=== PATIENT | male | born 1965 | race Caucasian/White ===

== ENCOUNTER 2024-01-01 10:33 | Inpatient (IN) ==
--- NOTE | 2023-12-29 11:16 | Anesthesiology Consultation ---
Date of Service December 29, 2023 Assessment & Plan Chart Review Chart Review: Acceptable Risk for Surgery and Patient NOT seen in Pre Admission Testing Consults Requested none ASA ASA4 Proposed Anesthesia Anesthesia Type: General Anesthesia Line Insertion: Arterial line History Surgery Operation Date: 01/01/24 13:00 Proposed Procedures p Right Transcarotid Artery Revascularization - Colin Edwards MD Height/Weight Height: 5 ft 7 in Weight: 78.471 kg Allergies Allergy/AdvReac Type Severity Reaction Status Date / Time No Known Allergies Allergy Verified 12/22/23 09:56 Medications Home Medications Medication Instructions Recorded Confirmed Last Taken atorvastatin 40 mg tablet 40 mg PO HS 11/30/23 12/22/23 12/09/23 cyclobenzaprine 5 mg tablet 5 mg PO QID MUSCLE SPASMS 11/30/23 12/22/23 12/09/23 08:00 fluticasone propionate 50 1 spray intranasal DAILY 11/30/23 12/22/23 12/09/23 mcg/actuation nasal spray,suspension hydroxyzine HCl 50 mg tablet 50 - 100 mg PO HS PRN Sleep 11/30/23 12/22/23 Unknown meloxicam 15 mg tablet 15 mg PO QAM 11/30/23 12/22/23 12/09/23 metoprolol succinate 50 mg 50 mg PO BID 11/30/23 12/22/23 12/09/23 08:00 tablet,extended release 24 hr olmesartan 40 1 tab PO QAM 11/30/23 12/22/23 12/09/23 mg-hydrochlorothiazide 25 mg tablet spironolactone 50 mg tablet 50 mg PO QAM 11/30/23 12/22/23 12/09/23 (Aldactone) ticagrelor 90 mg tablet (Brilinta) 90 mg PO BID 11/30/23 12/22/23 12/09/23 08:00 tizanidine 4 mg tablet 4 - 8 mg PO HS PRN Muscle Spasm 11/30/23 12/22/23 Unknown trazodone 100 mg tablet 100 mg PO HS 11/30/23 12/22/23 12/08/23 ondansetron HCl 4 mg tablet 4 mg PO Q6H PRN nausea and 12/11/23 12/22/23 Unknown vomiting #10 tabs escitalopram oxalate 20 mg tablet 20 mg PO QAM 12/22/23 12/22/23 Unknown Past Medical History Medical History correction (current) use of antithrombotics/antiplatelets 2 cardiac stents 06/2023 Hx of insomnia Carotid artery stenosis Hx of sinusitis gets 2-3 times per year Hyperlipidemia History of COVID-19 (12/09/23) had diarrhea, went to ER at [facility], resolved Hx of coronary artery disease (06/2023) [place], 2 stents, Prox R LAD (Xience Skypoint), Follows Dr. Melissa Tran at [facility] (last seen 3-4 weeks ago) Hypertension Hx of myocardial infarction (06/2023) [place], 2 stents, Prox R LAD (Xience Skypoint), Follows Dr. Melissa Tran at [facility] (last seen 3-4 weeks ago) Exercise / Class Metabolic Activity III < 4 Walking/Shop/Light housework Past Surgical History Surgical History Hx of cardiac catheterization (06/2023) [place], 2 stents, Prox R LAD (Xience Skypoint), Follows Dr. Melissa Tran at [facility] (last seen 3-4 weeks ago) History of back surgery (2016) L4- L5 fusion Hx of shoulder surgery (2019) right, bone spurs Past Anesthesia History No Hx of Anesthesia Complications and No Family Hx of Anesthesia Complications History of PONV No Hx of PONV and No Hx of Motion Sickness Social History Smoking Status: Current every day smoker Smoking cigarettes per day: smokes 4-6 cigs per day (Advised) Do You Dip or Chew Tobacco: No Hx Alcohol Use: No Hx Substance Use: No substance use type: does not use Testing Electrocardiogram Date: 12/11/23 Findings: + SB @ (@ 57) Chest X-Ray Date: 12/11/23 Findings: + NAD Cardiac Catheterization Date: 06/30/23 Findings: + RCA (prox. long 80%), + LMA (LI's in Left Main Trunk; LAD - mid 70%) and + LCX (prox. 30-40%) Intervention: + MAYRA placed (MAYRA to prox. RCA;MAYRA to mid LAD)
--- NOTE | 2024-01-01 10:15 | History & Physical Report ---
"Date of Service January 01, 2024 History of Present Illness Primary Care Provider: Kaley Jordan DO Chief Complaint rm#2 here for right ARIELLE, Jun 2023 had SOB and heaviness of chest, Heart cath 2 stents, LAD and Prox RCA. Continues to smoke but has reduced to 4 cig a day. On plavix, aspirin, and Brilinta. Reason for Consultation Right carotid stenosis History of Present Illness I had the pleasure of seeing [place] today for evaluation of his carotid arteries. There is no he is a 58-year-old male who was seen in the emergency room for facial swelling and tenderness. He had a CAT scan done at that time which showed a severe stenosis of his right internal carotid artery. He does have a significant heart history with having 2 cardiac stents placed in May of last year. Denies any cerebrovascular symptoms such as strokes TIAs or amau rosis fugax. He does not complain of any claudication symptoms. Review of Systems Review of systems a 10 systems was negative except for the history of present illness as well as back pain. Physical Exam Vitals & Measurements HR: 107 (Monitored) BP: 144/82 SpO2: 97% Input and Output - Last 24 hours (Last 8 hours) No I/O Data Found: Ability physical exam he is awake alert and oriented x 3. He is in no apparent distress. His blood pressure is 140/84 on the left and 144/82 on the right. His radials and carotids are +2 bilaterally. There is a right carotid bruit. Lungs are clear heart is regular rhythm abdomen is benign I cannot appreciate a pulsatile mass. Femorals and pedal's are +2 bilaterally. Neurologic exam is intact motor and sensory function. Diagnostic Results CT of the neck with IV contrast suggested a severe stenosis of his right internal carotid artery. Assessment/Plan 1. Carotid stenosis, bilateral At this point we recommend a CT angiogram of his carotid arteries to better define the lesion and planning for TCAR versus endarterectomy. I believe he will be a TCAR candidate. We discussed the risks and benefits of a TCAR versus endarterectomy. He would like to have a TCAR done if possible. He understood the risks options and benefits of this procedure as it is documented in the consent form. We will order a CT angio at this time and preoperative clearance with his lens maker. He is a candidate for CT angiogram we will go ahead with a TCAR. He is not a candidate then endarterectomy will be performed. Thank you very much for letting us participate in the care of this patient. Sincerely, Ophleia Edwards MD Attestation I have personally spent __35___ minutes performing [id number] and [id number] activities on this date of service. Activities Include: __x review of the medical record _x_ obtaining a history _x_ physical exam/evaluation __ review labs _x_ review radiology reports _x_ counseling/educating patient/family/caregiver __ discussion/referral to other healthcare professional _x_ documenting care in the medical record __ independent interpretation of results ____ __ communication of results to patient/family/caregiver __ coordination of care Problem List/Past Medical History Ongoing Anxiety Carotid stenosis, bilateral Chronic back pain Headache History of ST elevation myocardial infarction (STEMI) Hypertension Tobacco user Procedure/Surgical History Cardiac catheterization| Service Date: 2021 Fusion of lumbar spine| Service Date: 01/08/2016 Right shoulder| Service Date: 1994 Medications Home amoxicillin-clavulanate(amoxicillin-clavulanate 875 mg-125 mg oral tablet) aspirin(aspirin 81 mg oral delayed release tablet), 81 mg= 1 tab, PO, Daily atorvastatin(atorvastatin 40 mg oral tablet), 40 mg= 1 tab, PO, Daily, 4 refills cyclobenzaprine(Flexeril 5 mg oral tablet), 10 mg= 2 tab, PO, bid, PRN, 1 refills escitalopram(escitalopram 20 mg oral tablet), 20 mg= 1 tab, PO, Daily fluticasone nasal(Flonase 50 mcg/inh nasal spray), 1 spray, each nostril, Daily hydrochlorothiazide-olmesartan(hydrochlorothiazide-olmesartan 25 mg-40 mg oral tablet), 1 tab, PO, Daily hydrOXYzine(hydrOXYzine hydrochloride 50 mg oral tablet), See Instructions, 2 refills meloxicam(meloxicam 15 mg oral tablet), 15 mg= 1 tab, PO, Daily metoprolol(Metoprolol Succinate ER 50 mg oral tablet, extended release) spironolactone(spironolactone 50 mg oral tablet), 50 mg= 1 tab, PO, Daily ticagrelor(Brilinta (ticagrelor) 90 mg oral tablet), 90 mg= 1 tab, PO, bid traZODone(traZODone 100 mg oral tablet), 100 mg= 1 tab, PO, qhs, 2 refills Allergies No Known Medication Allergies Social History Smoking Status Current every day light smoker Alcohol Use:Current Frequency:1-2 times per month Employment/School Status:Disability Exercise Exercise type:Walking Home/Environment Lives with:Alone Feels unsafe at home:No Substance Abuse - Denies Substance Abuse Tobacco Use:Current every day smoker Tobacco use per day:5 Family History Cancer: Father. Crohn's disease: Sister and Brother. Health Status Family Member(s) Family Member(s) Relationship: Father, Age: 54 Years, Cause: stomach cancer Relationship: Mother, Age: 74 Years, Cause: ileus Relationship: Sister, Age: 57 Years, Cause: sepsis, post-op complication Immunizations Vaccine Date Status pneumococcal 23-valent vaccine 01/10/2021 Recorded SARS-CoV-2 (COVID-19) mRNA-1273 vaccine 10/20/2020 Recorded SARS-CoV-2 (COVID-19) mRNA-1273 vaccine 10/06/2020 Recorded Signature Line Electronic Signature on File Colin Edwards MD Author Signature Dt/Tm: 12/03/2023 10:31 AM Section [employer]s Activities Clerk [place] [facility] [place], [address] Result Type: .Outpt Ltr Date of Service: December 03, 2023 10:26 EDT Authorization Status: Final Subject: Consult Note Author or Import Date: MD Edwards Eugene J on December 03, 2023 10:31 EDT Verified By: MD Edwards Eugene J on December 03, 2023 10:31 EDT Encounter info: [id number], [place] [id number], [facility], 12/03/2023 - 12/03/2023 Allergies Allergy/AdvReac Type Severity Reaction Status Date / Time No Known Allergies Allergy Verified 12/22/23 09:56 Home Medications Medication Instructions Recorded Confirmed Type atorvastatin 40 mg tablet 40 mg PO HS 11/30/23 12/22/23 History cyclobenzaprine 5 mg tablet 5 mg PO QID MUSCLE SPASMS 11/30/23 12/22/23 History fluticasone propionate 50 1 spray intranasal DAILY 11/30/23 12/22/23 History mcg/actuation nasal spray,suspension hydroxyzine HCl 50 mg tablet 50 - 100 mg PO HS PRN Sleep 11/30/23 12/22/23 History meloxicam 15 mg tablet 15 mg PO QAM 11/30/23 12/22/23 History metoprolol succinate 50 mg 50 mg PO BID 11/30/23 12/22/23 History tablet,extended release 24 hr olmesartan 40 1 tab PO QAM 11/30/23 12/22/23 History mg-hydrochlorothiazide 25 mg tablet spironolactone 50 mg tablet 50 mg PO QAM 11/30/23 12/22/23 History (Aldactone) ticagrelor 90 mg tablet (Brilinta) 90 mg PO BID 11/30/23 12/22/23 History tizanidine 4 mg tablet 4 - 8 mg PO HS PRN Muscle Spasm 11/30/23 12/22/23 History trazodone 100 mg tablet 100 mg PO HS 11/30/23 12/22/23 History ondansetron HCl 4 mg tablet 4 mg PO Q6H PRN nausea and 12/11/23 12/22/23 Rx vomiting #10 tabs escitalopram oxalate 20 mg tablet 20 mg PO QAM 12/22/23 12/22/23 History Past Med/Surg History Problem List COVID (Acute) 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 Torres Cardio at [facility] (last seen 3-4 weeks ago) Hypertension Hx of myocardial infarction (06/2023) [place], [place], Prox R LAD (Xience Skypoint), Follows Dr. Torres Cardio at [facility] (last seen 3-4 weeks ago) Surgical History Hx of cardiac catheterization (06/2023) [place], 2 stents, Prox R LAD (Xience Skypoint), Follows Dr. Melissa Tran at [facility] (last seen 3-4 weeks ago) History of back surgery (2016) L4- L5 fusion Hx of shoulder surgery (2019) right, bone spurs Social History Smoking Status: Current every day smoker Tobacco Type: Cigarettes Cigarettes Per Day: smokes 4-6 cigs per day (Advised); Second Hand Exposure: No; Do You Dip or Chew Tobacco: No; Tobacco Cessation Education Requested by Patient: No Hx Alcohol Use: No Hx Substance Use: No Preferred Language: Belarusian Communication Ability: Effective Enrolled Agent Required: No Beliefs That Will Affect Care: None Current Living Situation: Alone Other Information That Helps Us Care for You: No Feels Safe at Home: Yes Safety Concerns: Feels Safe At This Time Assistive Devices: Glasses"
[2024-01-01] MEDS ORDERED: fentaNYL citrate PF 100 MCG/2 ML VIAL ONE ×2 (10:55→14:22)
[2024-01-01] MEDS ORDERED: ONDANSETRON INJ 2 MG/ML 2 ML VIAL ONE (10:55)
[2024-01-01] MEDS ORDERED: MIDAZOLAM HCL 1 MG/ML 2ML VIAL ONE (10:55)
[2024-01-01] MEDS ORDERED: PROPOFOL IV EMULSION 10 MG/ML 20 ML VIAL IV ONE (10:55)
[2024-01-01] MEDS ORDERED: ROCURONIUM BROMIDE 10 MG/ML 5 ML VIAL IV ONE (10:55)
[2024-01-01] MEDS ORDERED: LIDOCAINE 2% 2 ML VIAL/AMP(20MG/ML) INFIL ONE (10:55)
[2024-01-01] MEDS: ASPIRIN 81 MG ECTAB PO ONE ×2 (11:09→11:16)
[2024-01-01] MEDS: LACTATED RINGER'S 1,000 ML BAG IV SCH (11:10)
[2024-01-01] MEDS: LR 15ML/HR IV SCH (11:10)
[2024-01-01] MEDS ORDERED: fentaNYL citrate PF 100 MCG/2 ML VIAL IV PRN (12:14)
[2024-01-01] MEDS ORDERED: ONDANSETRON INJ 2 MG/ML 2 ML VIAL IV PRN (12:14)
[2024-01-01] MEDS ORDERED: ePHEDrine sulfate 50 MG/ML AMP IV PRN (12:14)
[2024-01-01] MEDS ORDERED: ATROPINE SULFATE 0.1 MG/ML 10ML SYR IV PRN (12:14)
--- NOTE | 2024-01-01 12:52 | History & Physical Bridge Note ---
Date of Service January 01, 2024 History & Physical Bridge Note Patient is a TCAR candidate. I have discussed the risks options and benefits of the procedure with the patient. The patient understands the risks options and benefits and agrees to the procedure. I have examined the patient, reviewed the History & Physical and in the interval since the performance of the History & Physical I have noted the following changes of clinical significance: no changes noted
[2024-01-01] MEDS: CEFAZOLIN 2,000 MG/15 ML SYR IV SCH (13:03)
[2024-01-01] MEDS: VISIPAQUE IV ONE (14:00)
[2024-01-01] MEDS ORDERED: SUGAMMADEX SODIUM 200 MG/2 ML VIAL IV ONE ×2 (14:04→14:16)
--- NOTE | 2024-01-01 14:27 | Procedure Note ---
Angiogram Post Procedure Fluoroscopy Time (minutes): 2.3 Radiation (mGy): 25 Contrast: 12 Post Operative Report Pre & Post Diagnosis Operation Date: 01/01/24 13:00 Pre-Op Diagnosis: Right Carotid Artery Stenosis Post-Op Diagnosis: Right Carotid Artery Stenosis I identified the patient and participated in the time-out.: Yes Procedure Operation Date: 01/01/24 13:00 Actual Procedures p Right Transcarotid Artery Revascularization(Right), Ultrasound localization of the left common femoral vein- Colin Edwards MD Surgeon Colin Edwards MD Elevator Attendant none Estimated Blood Loss 10 Findings Consistent with Post-Op Diagnosis Specimens none Anesthesia Type General Complications none Disposition Accompanied Patient To Recovery: No Disposition: Recovery Room Indications This is a 58-year-old gentleman was found to have a severe stenosis of his right internal carotid artery which was asymptomatic. We discussed the risk option benefits of intervening with a TCAR or endarterectomy. He elected to go ahead with a TCAR procedure. I have discussed the risks options and benefits of the procedure with the patien t. The patient understands the risks options and benefits and agrees to the procedure. Description of Procedure The patient was taken to the operating room and placed in supine position. After general anesthesia was accomplished the groins and right side of the neck and chest were prepped and draped in a sterile manner. Timeout was performed and the patient was identified. A transverse incision was made just above the clavicle between the heads of the sternocleidomastoid. This was carried down to where the common carotid artery was identified. It was isolated and slung with an umbilical tape. A 5-0 Prolene U-stitch was used on the common carotid artery and the puncture site. It was given 8000 units of heparin at that time. Ultrasound was then used to localize the left common femoral vein. The vein was patent and compressed easily. Under ultrasound guidance the left common femoral vein was punctured and the venous sheath was inserted. This was aspirated and flushed with heparinized saline. An ACT at that time was 271. Using micropuncture technique the common carotid artery was punctured. The micro sheath was inserted to 3 cm. Injection was then done showing the bifurcation. There was a significant lesion seen just beyond the origin of the internal carotid artery on the right side. We reinserted the micro wire and passed it into the external carotid. We then advanced the dilator and sheath into the external carotid. The dilater and sheath were removed. We then inserted the J- wire into the external carotid artery. The TCAR sheath was inserted. Once it was in place and held against the artery it was sutured to the chest wall and the incision edge. We then flushed the tubing appropriately. The venous return tubing was clamped onto the TCAR sheath. It was flushed through and then attached to the venous inflow sheath in the left groin. The sheath was checked for flow. We then inserted a 5 x 35 balloon backloaded on the wire. The wire was passed through the lesion into the petrous portion of the internal carotid. The 5 balloon was then advanced to the lesion. The lesion was then predilated with the 5 mm balloon. The balloon was removed. We then inserted the 9/7 x 40 stent. This was deployed across the lesion without difficulty. The catheter was removed. The carotid was allowed to go 2 minutes with flow reversal. Completion angiogram was done at that time which showed no residual stenosis.The wire was removed we allowed 2 minutes of flow reversal to occur. A that point the common carotid artery was unclamped. The venous return tubing was clamped and removed from the TCAR sheath. The blood was allowed to flow back into the venous system. Once this was completed the sheath was pulled from the groin and pressure was applied. The TCAR sheath was then removed and the 5- 0 Prolene suture securely tied. Hemostasis was noted of the puncture site. Wound was irrigated with Ancef solution. Adequate hemostasis was obtained of the wound. Once this was noted the wound was closed in usual fashion using a 3- 0 Vicryl suture for the subcutaneous layer and a 4-0 subcuticular Vicryl suture for the skin edges. Dermabond was used for dressing.The patient left the operation room in satisfactory condition and tolerated the procedure well. All needle and sponge counts were correct at the end of the procedure. I attest to the content of the Intraoperative Record and any orders documented therein. Any exceptions are noted below.
[2024-01-01] MEDS: BUPIVACAINE/EPINEPHRINE 0.5% MPF 1:200,000 30 ML VIAL ONE (14:30)
[2024-01-01] MEDS: ceFAZolin 330 MG/ML 1 GM VIAL ONE (14:37)
[2024-01-01] MEDS ORDERED: Nursing to Pharmacy Communication SCH (15:00)
--- NOTE | 2024-01-01 15:27 | Anesthesiology Progress Note ---
Date of Service January 01, 2024 Anesthesia Post Procedure Vital Signs Vital Signs: Temp Pulse Pulse Resp BP BP BP 01/01/24 15:15 76 13 113/60 119/75 01/01/24 15:05 81 18 121/60 129/76 01/01/24 14:55 81 12 98/51 L 114/46 L 01/01/24 14:45 84 15 116/56 L 108/79 01/01/24 14:35 74 13 125/87 127/67 01/01/24 14:29 36.2 C L 79 12 110/72 119/56 L 01/01/24 10:57 36.6 C 66 18 164/98 H 175/103 H Pulse Ox O2 Del Method O2 Flow Rate 01/01/24 15:15 96 Nasal Cannula 2 01/01/24 15:05 99 Nasal Cannula 4 01/01/24 14:55 97 Oxymask 6 01/01/24 14:45 96 Oxymask 10 01/01/24 14:35 99 Oxymask 10 01/01/24 14:29 97 Oxymask 10 01/01/24 10:57 98 Room Air Transfer of Care Handoff Completed per policy Notes Mental Status: alert / awake / arousable Patient Amnestic to Procedure: Yes Nausea / Vomiting: adequately controlled Pain: adequately controlled Airway Patency, RR, SpO2: stable & adequate BP & HR: stable & adequate Hydration State: stable & adequate Anesthetic Complications: no major complications apparent and Pt Satisfied with anesthetic care
[2024-01-01] MEDS ORDERED: STAT IV Infusion **Titration per Protocol STA (15:49)
[2024-01-01] MEDS ORDERED: PHENYLEPHRINE/NSS 25 MG/250 ML BAG IV PRN (15:49)
[2024-01-01] MEDS ORDERED: CYCLOBENZAPRINE HCL 5 MG TAB PO PRN (15:49)
[2024-01-01] MEDS ORDERED: tiZANidine HCL 4 MG TABLET PO PRN (15:49)
[2024-01-01] MEDS ORDERED: ONDANSETRON 4 MG OD TAB PO PRN (15:57)
[2024-01-01] MEDS: HEPARIN SOD (PORCINE) 1000 UNIT/ML IV ONE (16:31)
[2024-01-01] MEDS: LACTATED RINGER'S 1,000 ML IV SCH (16:36)
[2024-01-01] MEDS: ceFAZolin 2000MG 2,000 MG/15 ML SYR IV SCH (16:37)
[2024-01-01] MEDS ORDERED: PNEUMOCOCCAL VACCINE (PCV20) 20-VAL CONJ-DIP CRM/PF 0.5 ML SYR IM ONE (16:55)
[2024-01-01] MEDS: oxyCODONE/ACETAMINOPHEN 5mg/325mg TAB PO PRN (19:38)
--- NOTE | 2024-01-01 20:22 | Critical Care Consultation ---
Date of Consultation January 01, 2024 Assessment & Plan (1) Carotid artery stenosis: S/p right TCAR, POD 1. Admitted to ICU overnight for further monitoring -No issues at this time. Management per vascular surgery - Continue statin, Brilinta (2) Anxiety disorder: Continue Lexapro, trazodone (3) Hypertension: Continue hydrochlorothiazide, Cozaar, MTP, Aldactone (4) Lumbar stenosis: Continue Flexeril as needed, Percocet as needed History of Present Illness Attending Physician: Colin Edwards MD History of Present Illness Patient is a 58-year-old male with past medical history significant for previous DC in June, s/p PCI x 2, HTN, HLD, anxiety, lumbar stenosis, and recent diagnosis of carotid artery disease. Patient presented to the emergency department approximately 3 weeks ago with complaints of facial droop and episodes of dizziness which have proceeded up until 3 days ago. At that time he was found to have severe stenosis of the right internal carotid artery. Today he presents to the ICU post op following a right TCAR. On arrival to the ICU the patient is alert and oriented and hemodynamically stable. He is without acute distress, and only complains of a mild headache for which he recently took Tylenol. Patient reports that last episode of dizziness was about 3 days ago, and since then he is stayed out of the heat. He reports smoking about 4 to 5 cigarettes/day, which is down from a pack and a half a day which she smoked prior to his DC in June. Patient denies syncope, changes in vision, numbness or tingling, weakness, changes in gait. He denies shortness of breath, cough or congestion, fevers, chest pain, abdominal pain, nausea vomiting or diarrhea, swelling in hands or feet, changes in urinary frequency. Patient to remain in ICU overnight for monitoring postprocedure. Allergies Allergy/AdvReac Type Severity Reaction Status Date / Time No Known Allergies Allergy Verified 01/01/24 11:05 Home Medications Medication Instructions Recorded Confirmed Type atorvastatin 40 mg tablet 40 mg PO HS 11/30/23 01/01/24 History cyclobenzaprine 5 mg tablet 5 mg PO QID PRN MUSCLE SPASMS 11/30/23 01/01/24 History fluticasone propionate 50 1 spray intranasal DAILY 11/30/23 01/01/24 History mcg/actuation nasal spray,suspension hydroxyzine HCl 50 mg tablet 50 - 100 mg PO HS PRN Sleep 11/30/23 01/01/24 History meloxicam 15 mg tablet 15 mg PO QAM 11/30/23 01/01/24 History metoprolol succinate 50 mg 50 mg PO BID 11/30/23 01/01/24 History tablet,extended release 24 hr olmesartan 40 1 tab PO QAM 11/30/23 01/01/24 History mg-hydrochlorothiazide 25 mg tablet spironolactone 50 mg tablet 50 mg PO QAM 11/30/23 01/01/24 History (Aldactone) ticagrelor 90 mg tablet (Brilinta) 90 mg PO BID 11/30/23 01/01/24 History tizanidine 4 mg tablet (Zanaflex) 4 - 8 mg PO HS PRN Muscle Spasm 11/30/23 01/01/24 History trazodone 100 mg tablet 100 mg PO HS 11/30/23 01/01/24 History ondansetron HCl 4 mg tablet 4 mg PO Q6H PRN nausea and 12/11/23 01/01/24 Rx vomiting #10 tabs escitalopram oxalate 20 mg tablet 20 mg PO QAM 12/22/23 01/01/24 History (Lexapro) Patient History Medical History care home (current) use of antithrombotics/antiplatelets 2 cardiac stents 06/2023 Hx of insomnia Carotid artery stenosis Hx of sinusitis gets 2-3 times per year Hyperlipidemia History of COVID-19 (12/09/23) had diarrhea, went to ER at [facility], resolved Hx of coronary artery disease (06/2023) [facility], 2 stents, Prox R LAD (Xience [facility]), Follows Dr. Torres Cardio at [facility] (last seen 3-4 weeks ago) Hypertension Hx of myocardial infarction (06/2023) [facility]er, 2 stents, Prox R LAD (Xience [facility]oint), Follows Dr. Torres Cardio at [facility] (last seen 3-4 weeks ago) Surgical History Hx of cardiac catheterization (06/2023) [facility] [place], 2 stents, Prox R LAD (Xience [place]), Follows Dr. Torres Cardio at [facility] (last seen 3-4 weeks ago) History of back surgery (2016) L4- L5 fusion Hx of shoulder surgery (2019) right, bone spurs Social History Smoking Status: Current every day smoker Tobacco Type: Cigarettes Cigarettes Per Day: smokes 4-6 cigs per day (Advised); Second Hand Exposure: No; Do You Dip or Chew Tobacco: No; Tobacco Cessation Education Requested by Patient: No Hx Alcohol Use: No Hx Substance Use: No Preferred Language: Portuguese Communication Ability: Effective Calender Operator Helper Required: No Beliefs That Will Affect Care: None Current Living Situation: Alone Other Information That Helps Us Care for You: No Feels Safe at Home: Yes Safety Concerns: Feels Safe At This Time Assistive Devices: Glasses Review of Systems Review of Systems: All systems reviewed & are unremarkable except as noted in HPI & below Physical Exam Constitutional: cooperative and comfortable Eyes: PERRL, conjunctivae normal, anicteric sclerae ENMT: external ear and nose normal, oropharynx normal Neck: trachea midline, no thyromegaly Respiratory: normal respiratory effort, lungs clear to auscultation Cardiovascular: RRR, no murmur, no edema Heart Sounds: normal S1 and normal S2; no murmur Extremities: no edema Gastrointestinal (Abdomen): normal bowel sounds, soft, nontender, no hepatosplenomegaly Musculoskeletal: no cyanosis or clubbing, extremities motor strength 5/5 Skin: no rashes, warm and dry Neurologic: PERRL, EOMI, accommodation nl, no face palsy, no dysarthria Psychiatric: A+Ox3, euthymic affect Results & Data Results & Data Vital Signs (Past 12 Hours) Vital Signs Temp Pulse Pulse Pulse Resp BP BP 01/01/24 20:00 73 20 139/85 01/01/24 19:16 36.5 C 65 14 01/01/24 18:42 36.5 C 65 18 01/01/24 17:46 36.5 C 63 16 01/01/24 16:45 36.5 C 75 16 01/01/24 16:40 36.5 C 73 16 01/01/24 16:00 73 01/01/24 15:45 36.5 C 73 16 01/01/24 15:25 36.4 C L 73 13 01/01/24 15:15 76 13 01/01/24 15:05 81 18 01/01/24 14:55 81 12 01/01/24 14:45 84 15 01/01/24 14:35 74 13 125/87 01/01/24 14:29 36.2 C L 79 12 110/72 01/01/24 10:57 36.6 C 66 18 164/98 H BP BP Pulse Ox O2 Del Method O2 Flow Rate 01/01/24 20:00 95 Room Air 01/01/24 19:16 117/77 96 Room Air 01/01/24 18:42 118/77 94 Room Air 01/01/24 17:46 123/78 98 Room Air 01/01/24 16:45 103/85 97 Room Air 01/01/24 16:40 105/88 95 Room Air 01/01/24 16:00 01/01/24 15:45 122/90 96 Room Air 01/01/24 15:25 139/70 131/86 99 Nasal Cannula 2 01/01/24 15:15 113/60 119/75 96 Nasal Cannula 2 01/01/24 15:05 121/60 129/76 99 Nasal Cannula 4 01/01/24 14:55 98/51 L 114/46 L 97 Oxymask 6 01/01/24 14:45 116/56 L 108/79 96 Oxymask 10 01/01/24 14:35 127/67 99 Oxymask 10 01/01/24 14:29 119/56 L 97 Oxymask 10 01/01/24 10:57 175/103 H 98 Room Air Coding Level of Care Code 98676 IN/OBS CONSULT LVL 2,35M Diagnoses Carotid artery stenosis I65.29 Anxiety disorder F41.9 Hypertension I10 Lumbar stenosis M48.061 Time Spent (min) 38
[2024-01-01] MEDS: METOPROLOL SUCC 50MG EXT REL TAB PO SCH (20:49)
[2024-01-01] MEDS: TICAGRELOR 90 MG TAB PO SCH (20:50)
[2024-01-01] MEDS: ATORVASTATIN 40 MG TAB PO SCH (20:50)
[2024-01-01] MEDS: traZODone HCL 100 MG TAB PO SCH (21:38)
[2024-01-02] MEDS: ESCITALOPRAM OXALATE 20 MG TAB PO SCH (08:40)
[2024-01-02] MEDS: hydroCHLOROthiazide 25 MG TAB PO SCH (08:41)
[2024-01-02] MEDS: FLUTICASONE PROPIONATE NA SPR 16 GM BTL SCH (08:41)
[2024-01-02] MEDS: LOSARTAN POTASSIUM 50 MG TAB PO SCH (08:41)
[2024-01-02] MEDS: SPIRONOLACTONE 25 MG TAB PO SCH (08:41)
[2024-01-02] MEDS: MELOXICAM 7.5 MG TAB PO SCH (08:41)
--- NOTE | 2024-01-02 08:58 | Surgery Progress Note ---
Date of Service January 02, 2024 Assessment & Plan (1) Internal carotid artery stent present: Plan: Pt now POD #1 after R TCAR, doing well post op. OK for d/c home today. Unfortunately, pt with urinary retention since catheter removal yesterday, now with hernandez to leg bag present. Will start flomax. Pt will follow up with urology as outpt. (2) Carotid artery stenosis: Plan: see above Admission and Anticipated Discharge Date Admission Date: January 01, 2024 Subjective 58 yo m POD #1 after R TCAR, seen in f/u today. Pt states moderate discomfort in neck incision. Unable to void since hernandez removal yesterday. Required straight cath x2. Review of Systems Review of Systems: All systems reviewed & are unremarkable except as noted in HPI & below Physical Exam Constitutional: WD/WN, vitals as above not in distress Respiratory: normal respiratory effort, lungs clear to auscultation Auscultation: + diminished lung sounds Cardiovascular: Rate/Rhythm: regular rate and regular rhythm Vessels: posterior tibial pulses present, dorsalis pedis pulses present and radial pulses present; + abnormal peripheral pulses Extremities: normal capillary refill Gastrointestinal (Abdomen): Inspection/Auscultation: abdomen normal to inspection and normal bowel sounds Percussion/Palpation: abdomen soft; abdomen nontender Musculoskeletal: no cyanosis or clubbing, extremities motor strength 5/5 Skin: no rashes, warm and dry + incision (R supraclavicular incision C/D/I, mild local ecchymosis, tenderness) Neurologic: moves all extremities and awake; no focal motor deficits and not confused Psychiatric: A+Ox3, euthymic affect Results & Data Vital Signs (Past 12 Hours) Vital Signs Temp Pulse Pulse Resp BP BP Pulse Ox 01/02/24 08:48 61 12 118/57 L 118/65 93 01/02/24 07:08 59 L 16 141/74 H 137/72 93 01/02/24 07:02 36.4 C L 55 L 14 115/65 104/70 93 01/02/24 07:00 01/02/24 06:00 36.5 C 55 L 14 125/71 137/80 95 01/02/24 05:00 66 19 92 01/02/24 03:48 36.5 C 60 15 116/70 140/55 L 97 01/02/24 01:03 56 L 15 96 01/02/24 00:34 89 L 01/02/24 00:06 65 17 93 01/02/24 00:00 62 01/02/24 00:00 36.5 C 75 20 140/76 148/60 H 95 01/01/24 22:00 59 L 20 95 O2 Del Method O2 Flow Rate FiO2 01/02/24 08:48 Room Air 01/02/24 07:08 Room Air 01/02/24 07:02 Room Air 01/02/24 07:00 Room Air 01/02/24 06:00 Room Air 01/02/24 05:00 Nasal Cannula 2 01/02/24 03:48 Nasal Cannula 2 01/02/24 01:03 Nasal Cannula 2 01/02/24 00:34 Room Air, Nasal Cannula 21 01/02/24 00:06 01/02/24 00:00 01/02/24 00:00 Room Air 01/01/24 22:00
--- NOTE | 2024-01-02 08:59 | Discharge Summary ---
"Date of Service January 02, 2024 Admission HPI Per Admitting Provider Chief Complaint rm#2 here for right ARIELLE, Jun 2023 had SOB and heaviness of chest, Heart cath 2 stents, LAD and Prox RCA. Continues to smoke but has reduced to 4 cig a day. On plavix, aspirin, and Brilinta. Reason for Consultation Right carotid stenosis History of Present Illness I had the pleasure of seeing Truong today for evaluation of his carotid arteries. There is no he is a 58-year-old male who was seen in the emergency room for facial swelling and tenderness. He had a CAT scan done at that time which showed a severe stenosis of his right internal carotid artery. He does have a significant heart history with having 2 cardiac stents placed in May of last year. Denies any cerebrovascular symptoms such as strokes TIAs or amaurosis fugax. He does not complain of any claudication symptoms. Review of Systems Review of systems a 10 systems was negative except for the history of present illness as well as back pain. Physical Exam Vitals & Measurements HR: 107 (Monitored) BP: 144/82 SpO2: 97% Input and Output - Last 24 hours (Last 8 hours) No I/O Data Found: Ability physical exam he is awake alert and oriented x 3. He is in no apparent distress. His blood pressure is 140/84 on the left and 144/82 on the right. His radials and carotids are +2 bilaterally. There is a right carotid bruit. Lungs are clear heart is regular rhythm abdomen is benign I cannot appreciate a pulsatile mass. Femorals and pedal's are +2 bilaterally. Neurologic exam is intact motor and sensory function. Diagnostic Results CT of the neck with IV contrast suggested a severe stenosis of his right internal carotid artery. Assessment/Plan 1. Carotid stenosis, bilateral At this point we recommend a CT angiogram of his carotid arteries to better define the lesion and planning for TCAR versus endarterectomy. I believe he will be a TCAR candidate. We discussed the risks and benefits of a TCAR versus endarterectomy. He would like to have a TCAR done if possible. He understood the risks options and benefits of this procedure as it is documented in the consent form. 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 He is a candidate for CT angiogram we will go ahead with a TCAR. He is not a candidate then endarterectomy will be performed. Thank you very much for letting us participate in the care of this patient. Sincerely, Ophelia Montana MD Attestation I have personally spent __35___ minutes performing [id number] and [id number] activities on this date of service. Activities Include: __x review of the medical record _x_ obtaining a history _x_ physical exam/evaluation __ review labs _x_ review radiology reports _x_ counseling/educating patient/family/caregiver __ discussion/referral to other healthcare professional _x_ documenting care in the medical record __ independent interpretation of results __ communication of results to patient/family/caregiver __ coordination of care Problem List/Past Medical History Ongoing Anxiety Carotid stenosis, bilateral Chronic back pain Headache History of ST elevation myocardial infarction (STEMI) Hypertension Tobacco user Procedure/Surgical History Cardiac catheterization| Service Date: 2021 Fusion of lumbar spine| Service Date: 01/08/2016 Right shoulder| Service Date: 1994 Medications Home amoxicillin-clavulanate(amoxicillin-clavulanate 875 mg-125 mg oral tablet) aspirin(aspirin 81 mg oral delayed release tablet), 81 mg= 1 tab, PO, Daily atorvastatin(atorvastatin 40 mg oral tablet), 40 mg= 1 tab, PO, Daily, 4 refills cyclobenzaprine(Flexeril 5 mg oral tablet), 10 mg= 2 tab, PO, bid, PRN, 1 refills escitalopram(escitalopram 20 mg oral tablet), 20 mg= 1 tab, PO, Daily fluticasone nasal(Flonase 50 mcg/inh nasal spray), 1 spray, each nostril, Daily hydrochlorothiazide-olmesartan(hydrochlorothiazide-olmesartan 25 mg-40 mg oral tablet), 1 tab, PO, Daily hydrOXYzine(hydrOXYzine hydrochloride 50 mg oral tablet), See Instructions, 2 refills meloxicam(meloxicam 15 mg oral tablet), 15 mg= 1 tab, PO, Daily metoprolol(Metoprolol Succinate ER 50 mg oral tablet, extended release) spironolactone(spironolactone 50 mg oral tablet), 50 mg= 1 tab, PO, Daily ticagrelor(Brilinta (ticagrelor) 90 mg oral tablet), 90 mg= 1 tab, PO, bid traZODone(traZODone 100 mg oral tablet), 100 mg= 1 tab, PO, qhs, 2 refills Allergies No Known Medication Allergies Social History Smoking Status Current every day light smoker Alcohol Use:Current Frequency:1-2 times per month Employment/School Status:Disability Exercise Exercise type:Walking Home/Environment Lives with:Alone Feels unsafe at home:No Substance Abuse - Denies Substance Abuse Tobacco Use:Current every day smoker Tobacco use per day:5 Family History Cancer: Father. Crohn's disease: Sister and Brother. Health Status Family Member(s) Family Member(s) Relationship: Father, Age: 54 Years, Cause: stomach cancer Relationship: Mother, Age: 74 Years, Cause: ileus Relationship: Sister, Age: 57 Years, Cause: sepsis, post-op complication Immunizations Vaccine Date Status pneumococcal 23-valent vaccine 01/10/2021 Recorded SARS-CoV-2 (COVID-19) mRNA-1273 vaccine 10/20/2020 Recorded SARS-CoV-2 (COVID-19) mRNA-1273 vaccine 10/06/2020 Recorded Signature Line Electronic Signature on File Colin Montana MD Author Signature Dt/Tm: 12/03/2023 10:31 AM Pet Care Attendant [facility] [place], [address] [place], [place] [address] Result Type: .Outpt Ltr Date of Service: December 03, 2023 10:26 EDT Authorization Status: Final Subject: Consult Note Author or Import Date: MD Montana Eugene J on December 03, 2023 10:31 EDT Verified By: MD Montana Eugene J on December 03, 2023 10:31 EDT Encounter info: [id number], [facility], Clinic, 12/03/2023 - 12/03/2023 Admission Exam Per Admitting Provider physical exam he is awake alert and oriented x 3. He is in no apparent distress. His blood pressure is 140/84 on the left and 144/82 on the right. His radials and carotids are +2 bilaterally. There is a right carotid bruit. Lungs are clear heart is regular rhythm abdomen is benign I cannot appreciate a pulsatile mass. Femorals and pedal's are +2 bilaterally. Neurologic exam is intact motor and sensory function. Principal Diagnosis 1. s/p R TCAR 2. R ICA stenosis Discharge Exam Constitutional WD/WN, vitals as above not in distress Respiratory normal respiratory effort, lungs clear to auscultation Auscultation: + diminished lung sounds Cardiovascular Rate/Rhythm: regular rate and regular rhythm Vessels: posterior tibial pulses present, dorsalis pedis pulses present and radial pulses present; + abnormal peripheral pulses Extremities: normal capillary refill Gastrointestinal (Abdomen) Inspection/Auscultation: abdomen normal to inspection and normal bowel sounds Percussion/Palpation: abdomen soft; abdomen nontender Musculoskeletal no cyanosis or clubbing, extremities motor strength 5/5 Skin no rashes, warm and dry + incision (R supraclavicular incision C/D/I, mild local ecchymosis, tenderness) Neurologic moves all extremities and awake; no focal motor deficits and not confused Psychiatric A+Ox3, euthymic affect Discharge Data Allergies Allergy/AdvReac Type Severity Reaction Status Date / Time No Known Allergies Allergy Verified 01/01/24 11:05 Consultations 01/01/24 15:49 Consult Car Dispatcher Routine Procedures Performed Operation Date: 01/01/24 13:00 Actual Procedures p Right Transcarotid Artery Revascularization(Right) - Colin Montana MD Ordered Studies 01/01/24 07:38 EV angio carotid cerv RT Routine US EV guide vascular access Routine Hospital Course (1) Internal carotid artery stent present: Pt now POD #1 after R TCAR, doing well post op. OK for d/c home today. Unfortunately, pt with urinary retention since catheter removal yesterday, now with hernandez to leg bag present. Will start flomax. Pt will follow up with urology as outpt. (2) Carotid artery stenosis: see above Total Time Total Time Spent Total Time Spent (In Minutes): 0 Discharge Plan Discharge Items Patient Disposition: Home - Self-Care Reason For Visit: Right Carotid Artery Stenosis Discharge Diagnosis: 1. s/p R TCAR 2. R ICA stenosis Activity: Per Instructions section Non-emergency contact: Primary Care Provider and Surgeon Call non-emergency contact if: your symptoms worsen, your pain is not controlled, your pain is concerning for you, you have a fever, your wound has increased redness and your wound has increased drainage Follow-up/Referrals: Epifanio Velasquez DO [Physician] - (Follow up with Urology within 1 week. Call for an appt. ) Colin Montana MD [Physician] - (Follow up with Dr Montana or Evita Ram PA-C, in 2 weeks.) Kaley Jordan DO [Primary Care Provider] - (Follow up with your PCP in 2 weeks) Diet: Heart Healthy Addtl Attending Provider Instructions: SPECIAL CARE INSTRUCTIONS: Medications: * Continue to take Aspirin, ticagrelor, and statin medications as directed. DO NOT STOP THESE MEDICATIONS WITHOUT SPEAKING TO DR MONTANA'S OFFICE. Incision Care: * You may shower, but do not rub incision. You may let the warm soapy water run over it. Be sure to dry the incision well after bathing. * Do not shave directly over the incision until it is healed. * DO NOT IMMERSE THE INCISION IN A TUB/POOL/etc. UNTIL HEALED. Restrictions: * Do not drive for at least one week or if you are still taking any narcotic pain medication. * Do not lift anything heavier than a gallon of milk for one week after going home. Possible Complications: * Numbness - It is normal to have some numbness around the incision. Numbness can extend beyond the incision to areas of the neck, ear and face. The numbness is due to bruising of nerves during the surgery and will gradually improve over a period of months. * Hoarseness/Difficulty Speaking and Swallowing - The bruising of nerves in the neck can also cause a hoarse voice, difficulty speaking or swallowing. This may improve over time, HOWEVER, if it continues for more than a few days please contact our office ([phone]). * Excessive Swelling - There will be some swelling immediately after surgery which usually resolves within one week. If you notice that the swelling is getting worse, notify your surgeon ([phone]). * Drainage/Bleeding - If there is any drainage or bleeding, it should be a very small amount (less than a teaspoon per day). If you have excessive bleeding or drainage from the incision, call your surgeon ([phone]) right away. ACTIVATION OF EMERGENCY MEDICAL SYSTEM: Call 911, immediately, if you experience any of the following: Warning Signs and Symptoms of Stroke: * Sudden numbness or weakness of the face, arm or leg, especially on one side of the body * Sudden confusion, trouble speaking or understanding * Sudden trouble seeing in one or both eyes * Sudden trouble walking, dizziness, loss of balance or coordination * Sudden severe headache with no cause Do not delay calling 911 if you experience any warning signs or symptoms of a stroke. Delay in seeking medical attention may affect what treatments can be given to you. Risk Factors for Stroke: You can reduce your chances of stroke by working with your medical provider to adopt a healthy lifestyle. Some specific ways to lower your chance of stroke are: * If you are a smoker, now is the time to stop smoking cigarettes * If you are diabetic, improve the control of your blood sugars * Avoid excessive amounts of alcohol * Control high blood pressure * Lose weight if you are overweight * Be sure to lead an active lifestyle * Eat a healthy diet low in salt, cholesterol and fat You should know about other risk factors for stroke that you are unable to control. These include: * Age 55 years or older * Male gender * Certain racial groups: , or / * Family History of Stroke, Mini stroke or Heart Attack * Sickle Cell Disease You will be receiving a call from the Vascular Surgery Nurse after you are discharged. FOLLOW UP VISIT: It is important for you to keep your follow up appointments with your medical provider. Keep any scheduled doctor appointments. Pending Studies at Discharge: No Stand-Alone Forms: [facility], Smoking Cessation Medications and DC Order Prescriptions: New oxycodone-acetaminophen [Percocet] 5-325 mg Tablet 1 - 2 tab PO Q6H PRN (Reason: pain) Qty: 20 0RF tamsulosin [Flomax] 0.4 mg capsule 0.4 mg PO DAILY Qty: 30 0RF Continued atorvastatin 40 mg tablet 40 mg PO HS tizanidine [Zanaflex] 4 mg tablet 4 - 8 mg PO HS PRN (Reason: Muscle Spasm) meloxicam 15 mg tablet 15 mg PO QAM hydroxyzine HCl 50 mg tablet 50 - 100 mg PO HS PRN (Reason: Sleep) trazodone 100 mg tablet 100 mg PO HS fluticasone propionate 50 mcg/actuation spray,suspension 1 spray INTRANASAL DAILY spironolactone [Aldactone] 50 mg tablet 50 mg PO QAM cyclobenzaprine 5 mg tablet 5 mg PO QID PRN (Reason: MUSCLE SPASMS) olmesartan-hydrochlorothiazide 40-25 mg tablet 1 tab PO QAM Brilinta 90 mg tablet 90 mg PO BID metoprolol succinate 50 mg tablet extended release 24 hr 50 mg PO BID escitalopram oxalate [Lexapro] 20 mg Tablet 20 mg PO QAM ondansetron HCl 4 mg tablet 4 mg PO Q6H PRN (Reason: nausea and vomiting) Qty: 10 0RF Discharge Orders: Discharge Order (Routine); Ordered 01/02/24 Ordered By: Evita Ram Admission Data Admit Date/Time: 01/01/24 12:51 Attending Provider: Colin Montana Admit Provider: Colin Montana Primary Care Provider: Kaley Jordan Other Providers: Jamal Baez; Gómez Alicea; Jose Maria Chawla; Christiano Ferrer; Michelet Allison Muqueet; Shaq Kerr; Ria Christopher; Funmilayo Strickland; Khurram Betancourt; Killian Worthy; Joyce Orosco"
[2024-01-02] MEDS ORDERED: ASPIRIN 81 MG ECTAB PO SCH (09:00)
--- NOTE | 2024-01-02 10:19 | Communication Note ---
Date of Service: January 02, 2024 Pt ok for d/c home today, ok to drive himself home if he can turn his head left and right.
== END 2024-01-02 13:16 | disposition home or self-care (01) | DRG 36 ==
LOC: ASU 10:33 → 1E 12:51
PROC: EV.TCAR (2024-01-01 13:00)